=== PATIENT | female | born 1945 | race Caucasian/White ===

== ENCOUNTER 2022-12-24 00:17 | Outpatient (CLI) | payer MEDICARE, SELFPAY ==
--- NOTE | 2022-12-24 12:00 | DI.CT_ITS ---
Exam(s) CT ABDOMEN PELVIS W EXAM: CT ABDOMEN PELVIS W CLINICAL HISTORY: ABD MASS, R19.00. TECHNIQUE: Imaging Protocol: Axial computed tomography images with coronal and sagittal reformatted images were created and reviewed CONTRAST MATERIAL: Intravenous: Omnipaque-350 100cc Oral: Yes. Oral contrast also administered for bowel opacification. COMPARISON: CT CT CHEST LUNG CANCER SCREEN from 12/24/2022 FINDINGS: VISUALIZED LUNG BASES: Interstitial disease. No confluent infiltrates and no pleural effusions seen in the lung bases.. ABDOMEN: There is no ascites. Moderate size hiatal hernia noted. No bowel obstruction. No free air. LIVER: There are no focal hepatic lesions evident. No dilated intrahepatic ducts. GALLBLADDER/BILIARY: Gallbladder surgically absent. CBD diameter is slightly prominent but commensur ate with post cholecystectomy status and patient's age. PANCREAS: No evidence of pancreatic mass nor dilatation of the pancreatic duct. SPLEEN: Spleen is not enlarged. No obvious intrasplenic lesions. Splenic and portal veins are paten t. ADRENALS: There are no significant adrenal masses. KIDNEYS:There is a benign cyst in the inferior pole of the right kidney measuring 5 x 4 x 4 cm. No s olid renal masses. Calcifications medial to both kidneys noted which are probably vascular. Ureters are not dilated. No calculi in the nondistended urinary bladder.. ABDOMINAL AORTA: Calcified and atherosclerotic. Maximum diameter 2.5 cm. Common iliac arteries are also heavily calcified but not significantly dilated. LYMPH NODES:There is no retroperitoneal nor paraaortic adenopathy. ABDOMINAL WALL: Evidence previous anterior abdominal wall surgery. Atrophy of the left rectus abdomi nus muscle. GI: There is no evidence of bowel obstruction, free air, nor abscess. PELVIS: GI: Retrocecal appendix with no evidence of acute appendicitis.Extensive sigmoid diverticulosis. Dif ficult to determine if there is subtle acute diverticulitis. No free air. No free fluid. LYMPH NODES: There is no intrapelvic nor inguinal adenopathy. REPRODUCTIVE: Uterus and adnexal regions are age-appropriate. No free fluid. URINARY BLADDER: No calculi nor obvious masses evident OSSEOUS: Degenerative changes in the right hip. No fractures. Mild degenerative grade 1 anterolisth esis of L4 upon L5,. IMPRESSION: 1. There is very extensive sigmoid diverticulosis. No obvious acute diverticulitis. However, please note that a subtle case of diverticulitis can be easily missed here, in the severe involvement of th e sigmoid. 2. No evidence of appendicitis. 3. 5 cm benign cyst in the inferior aspect of the right kidney. Requires no further workup. 4. Heavily calcified abdominal aorta with maximum external diameter 2.5 cm. The common iliac arterie s are also heavily calcified and upper normal diameters. RADIATION DOSE DELIVERED: 809.3mGy.cm Total DLP DATA REPOSITORY: All CT scans at this facility are submitted to the National Radiology Data Registry (NRDR) Dose Index Registry (DIR) with the [employer] (A[employer]). RADIATION OPTIMIZATION: All CT scans at this facility use at least one of these dose optimization te chniques: automated exposure control; mA and/or kV adjustment per patient size (includes targeted exa ms where dose is matched to clinical indication); or iterative reconstruction.
--- NOTE | 2022-12-24 12:00 | DI.CTLCSR_ITS ---
Exam(s) CT CHEST LUNG CANCER SCREEN EXAM: CT CHEST LUNG CANCER SCREEN CLINICAL HISTORY: CURRENT SMOKER, LUNG CA SCREENING, F17.210. TECHNIQUE: Imaging Protocol: Low Dose Technique CONTRAST MATERIAL: None COMPARISON: No exams were available for comparison FINDINGS: CHEST: LUNGS: Advanced bilateral COPD changes. Multiple peripheral bullae noted. No confluent infiltrates there are no ominous pulmonary nodules. No pleural effusions. MEDIASTINUM: There is no obvious hilar nor mediastinal adenopathy. CARDIAC: Heart size is upper normal. There is no pericardial effusion.Caliber of the ascending thora cic aorta is within upper normal limits. Descending thoracic aorta is enlarged, measuring 3.7 cm. OTHER: Moderate size hiatal hernia noted. Previous cholecystectomy. OSSEOUS: No significant osseous lesions.. IMPRESSION: 1. Chronic COPD emphysematous changes. No ominous pulmonary nodules. 2. No obvious intrathoracic adenopathy. No pleural effusions 3. Lung RADS Cat 2 - Benign Appearance / Behavior: Nodules with a very low likelihood of becoming a c linically active cancer due to size or lack of growth Lung-RADS 1.0 CATEGORIES: Category 0 - Prior chest CT exam(s) being located for comparison. Category 1 - Annual screening in 12 months. No nodules or definitely benign nodules. Category 2 - Annual screening in 12 months. Benign appearance. Nodules with low likelihood of becomin g active cancer. Category 3 - 6-month follow-up. Probably benign. Short-term follow-up suggested. Nodules with low lik elihood of becoming active cancer. Category 4A - 3-month follow-up and CT/PET if >8 mm in size. Suspicious finding. Findings which requi re additional testing. Category 4B - Findings which require additional testing and tissue sampling. Category 4X - Category 3 or 4 nodules with additional features or imaging findings that increases the suspicion of malignancy. Modifier S- Potentially clinically significant findings (non lung cancer) RADIATION DOSE DELIVERED: 70.94mGy.cm Total DLP DATA REPOSITORY: All CT scans at this facility are submitted to the National Radiology Data Registry (NRDR) Dose Index Registry (DIR) with the [employer] (ACR). RADIATION OPTIMIZATION: All CT scans at this facility use at least one of these dose optimization te chniques: automated exposure control; mA and/or kV adjustment per patient size (includes targeted exa ms where dose is matched to clinical indication); or iterative reconstruction.
[2022-12-24] MEDS: Omnipaque 350 MG/ML 100 ML BTL IJ (14:40)
== END 2022-12-24 00:37 ==
PROVIDERS: PCP Nurse Practitioner; Visit Provider Nurse Practitioner
DX: Z12.2 Encounter for screening for malignant neoplasm of respiratory organs (principal); F17.210 Nicotine dependence, cigarettes, uncomplicated; J44.9 Chronic obstructive pulmonary disease, unspecified
CPT/HCPCS: 71271; 74177; J3490

== ENCOUNTER 2024-05-14 16:53 | Emergency (ER) | payer MEDICARE, SELFPAY ==
[2024-05-14 16:55] VITALS: BP 159/117; PULSE 95; RESP 20; TEMP 36.1; O2SAT 97
[2024-05-14 17:46] LABS: Abs Immature Grans 0.04 10^3/uL (0.0-0.06); Absolute Basophil Count 0.09 10^3/uL (0.0-0.2); Absolute Eosinophil Count 0.15 10^3/uL (0.0-0.7); Absolute Lymphocyte Count 3.99 10^3/uL (1.2-3.4); Basophils % 0.8 %; Eosinophils % 1.3 %; HCT 43.7 % (36.0-46.0); HGB 13.9 g/dL (11.2-15.7); Immature Grans % 0.3 %; Lymphocytes % 34.2 %; MCHC 31.8 % (32.0-36.0); MCV 91 fL (80-95); MPV 9.7 fL (8.0-11.0); Monocytes % 6.9 %; Neutrophils % 56.5 %; Platelet Count 409 10^3/uL (130-400); RDW 13.5 % (11.7-14.6); RDW-SD 45.7 fL; WBC 11.66 10^3/uL (4.4-10.8)
[2024-05-14 17:48] LABS: Absolute Neutrophil Count 6.59 10^3/uL (1.2-6.7)
[2024-05-14 18:05] LABS: Salicylate < 2.8 mg/dL (<2.8)
[2024-05-14 18:06] LABS: Acetaminophen < 2 ug/mL (10-30)
[2024-05-14 18:12] LABS: ALT 15 U/L (14-59); AST 18 U/L (15-37); Albumin 4.2 g/dL (3.4-5.0); Alkaline Phosphatase 130 U/L (46-116); Anion Gap 11.7 mmol/L (3-11); BUN 16 mg/dL (7-18); Bilirubin, Total 0.59 mg/dL (0.2-1.0); CO2 28.3 mmol/L (21.0-32.0); CREATININE 0.9 mg/dL (0.55-1.02); Calcium 9.9 mg/dL (8.5-10.1); Chloride 103 mmol/L (98-107); ETHANOL BLOOD < 3.0 mg/dL (<10); Estimated GFR 65.84 (mL/min/1.73m2); Glucose 121 mg/dL (74-106); Potassium 4.3 mmol/L (3.5-5.1); Sodium 143 mmol/L (136-145); TSH (W/Ref FT4) 4.35 uIU/mL (0.36-3.74); Total Protein 9.1 g/dL (6.4-8.2)
[2024-05-14 18:19] VITALS: BP 165/76; PULSE 68; RESP 18; TEMP 36.6; O2SAT 99
[2024-05-14 18:29] LABS: FREE T4 1.04 ng/dL (0.76-1.46)
[2024-05-14 19:15] LABS: Bilirubin Negative (Negative); Blood Trace-intact (Negative); Clarity Sl Cloudy (Clear); Glucose Negative (Negative); Ketones Negative (Negative); Leukocyte Esterase Negative (Negative); Nitrite Negative (Negative); pH 5.5 (5-8)
[2024-05-14 19:25] LABS: Bacteria Many HPF (Negative); C & S Indicated? No/Sq. Contamination; Crystals Negative HPF (Negative); Epithelial Cells Many HPF (Negative); Mucus Negative (Negative)
[2024-05-14 19:28] LABS: *AMPHETAMINES SCREEN URINE Negative (Negative); *BARBITURATES SCREEN URINE Negative (Negative); *BENZODIAZEPINES SCREEN URINE Negative (Negative); Cannabinoids THC Negative (Negative); Cocaine Screen,Urine Negative (Negative); METHADONE URINE SCREEN Negative (Negative); OPIATES URINE SCREEN Negative (Negative)
[2024-05-14 19:29] LABS: Tricyclic Antidepressants Negative (Negative)
--- NOTE | 2024-05-14 21:39 | ED.GENADUL_ITS ---
Discharge Plan Discharge Details Chief Complaint: PsychEval Primary Care Provider: Herminia Marte ED Provider: Brien Mendez Home Meds and New Rx's Prescriptions: No Action atorvastatin 40 mg tablet 40 mg PO DAILY clopidogrel 75 mg tablet 75 mg PO DAILY diltiazem HCl 60 mg capsule,extended release 12 hr 60 mg PO DAILY furosemide 20 mg tablet 20 mg PO DAILY pantoprazole 40 mg tablet,delayed release (DR/EC) 40 mg PO DAILY buspirone 5 mg tablet 5 mg PO BID fluticasone propion-salmeterol [Advair HFA] 115-21 mcg/actuation HFA aerosol inhaler 2 inh INHALATION BID HPI General Mode of arrival: ambulatory . Date/Time Provider Initiated Documentation: 05/14/24 16:55 . Limitations to Documentation: no limitations . Information obtained by: patient and police . History of Present Illness 78 year old F presents to the emergency department with the chief complaint of Homicidal ideations, described as severe, Patient started experiencing this unknown and it has been constant. No relieving factors improve symptom(s), Other factors that worsen symptoms (Social situation) . Patient notes no other symptoms.. Patient did receive the following treatments prior to arrival, none Related Data Home Medications Medication Instructions Recorded Confirmed atorvastatin 40 mg tablet 40 mg PO DAILY 05/14/24 05/14/24 buspirone 5 mg tablet 5 mg PO BID 05/14/24 05/14/24 clopidogrel 75 mg tablet 75 mg PO DAILY 05/14/24 05/14/24 diltiazem HCl 60 mg 60 mg PO DAILY 05/14/24 05/14/24 capsule,extended release 12 hr fluticasone propionate 115 2 inh inhalation BID 05/14/24 05/14/24 mcg-salmeterol 21 mcg/actuation HFA inhaler (Advair HFA) furosemide 20 mg tablet 20 mg PO DAILY 05/14/24 05/14/24 pantoprazole 40 mg tablet,delayed 40 mg PO DAILY 05/14/24 05/14/24 release Allergies Allergy/AdvReac Type Severity Reaction Status Date / Time Penicillins Allergy Anaphylaxis Unverified 05/14/24 17:00 sulfamethoxazole Allergy Anaphylaxis Unverified 05/14/24 17:00 [From Bactrim] trimethoprim [From Bactrim] Allergy Anaphylaxis Unverified 05/14/24 17:00 General Stated Complaint: PsychEval MICHAEL: 2 Review of Systems Constitutional Constitutional: Denies chills, Denies fever(s) and Denies weakness Cardiovascular Cardiovascular: Denies chest pain and Denies dyspnea Respiratory Respiratory: Denies dyspnea Gastrointestinal Gastrointestinal: Denies abdominal pain Neurologic Neurologic: Denies localized weakness, Reports memory loss (Mild intermittent) and Denies weakness Psychiatric Psychiatric: Reports as per HPI, Denies change in appetite, Denies auditory hallucinations, Denies hopelessness, Reports memory loss (Mild intermittent), Denies panic attacks, Denies visual hallucinations, Denies hallucinations, Reports homicidal ideation and Denies suicidal ideation Exam Const General: cooperative Orientation: alert, awake and oriented x3 Limitations: mental status not altered HENMT Head: normal to inspection, normocephalic and atraumatic Ears: hearing grossly normal bilaterally Mouth: moist mucous membranes Eyes General: appearance normal, both eyes and all related structures Pupils: PERRL Resp Effort & Inspection: normal respiratory effort, able to speak in complete sentences and no respiratory distress Auscultation: clear to auscultation bilaterally Cardio Rate: regular rate and not tachycardic Rhythm: regular rhythm Heart Sounds: S1 normal, S2 normal, no click, no gallops, no murmurs and no rubs Neuro General: patient alert, patient awake, patient oriented x3, gait normal, moves all extremities and no focal motor deficits Cognition: normal cognition Speech: speech normal Psych Appearance: disheveled Mental Status: mental status grossly normal Speech and Movement: speech and movement normal Mood: irritable mood Affect: animated Attitude: cooperative Thought Content: no hallucinations, homicidality and suicidality Course Vital Signs Vital signs: Vital Signs Temperature 36.1 C L 05/14/24 16:55 Pulse 95 H 05/14/24 16:55 Respiratory Rate 20 05/14/24 16:55 Blood Pressure 159/117 H 05/14/24 16:55 Pulse Oximetry 97 05/14/24 16:55 Temperature 36.6 C 05/14/24 18:19 Temperature Source Temporal Artery Scan 05/14/24 18:19 Pulse 68 05/14/24 18:19 Pulse Rhythm Regular 05/14/24 18:19 Pulse Strength Normal 05/14/24 18:19 Respiratory Rate 18 05/14/24 18:19 Respiratory Effort Pursed Lip 05/14/24 18:19 Respiratory Depth Normal 05/14/24 18:19 Respiratory Pattern Normal 05/14/24 18:19 Blood Pressure 165/76 H 05/14/24 18:19 Blood Pressure Mean 105 05/14/24 18:19 Blood Pressure Position Supine 05/14/24 18:19 Pulse Oximetry 99 05/14/24 18:19 Oxygen Delivery Method Room Air 05/14/24 18:19 Oxygen Flow Rate 0 05/14/24 18:19 Pain Level 0 05/14/24 18:19 Lab/Test Results Lab/Test Results: Laboratory Tests Range/Units 05/14/24 05/14/24 17:32 19:14 WBC (4.4-10.8) 10^3/uL 11.66 H RBC (3.93-5.22) 10^6/uL 4.80 Hgb (11.2-15.7) g/dL 13.9 Hct (36.0-46.0) % 43.7 MCV (80-95) fL 91 MCH (27.0-33.0) pg 29.0 MCHC (32.0-36.0) % 31.8 L RDW (11.7-14.6) % 13.5 Plt Count (130-400) 10^3/uL 409 H MPV (8.0-11.0) fL 9.7 Immature Gran % % 0.3 Neutrophils % % 56.5 Lymphocytes % % 34.2 Monocytes % % 6.9 Eosinophils % % 1.3 Basophils % % 0.8 Nucleated RBC % (0.0-0.3) % 0.0 Absolute Neutrophils (1.2-6.7) 10^3/uL 6.59 Absolute Lymphocytes (1.2-3.4) 10^3/uL 3.99 H Absolute Monocytes (0.1-0.8) 10^3/uL 0.80 Absolute Eosinophils (0.0-0.7) 10^3/uL 0.15 Absolute Basophils (0.0-0.2) 10^3/uL 0.09 Sodium (136-145) mmol/L 143 Potassium (3.5-5.1) mmol/L 4.3 Chloride (98-107) mmol/L 103 Carbon Dioxide (21.0-32.0) mmol/L 28.3 Anion Gap (3-11) mmol/L 11.7 H BUN (7-18) mg/dL 16 Creatinine (0.55-1.02) mg/dL 0.9 Est GFR (CKD-EPI 2020) (mL/min/1.73m2) 65.84 Glucose (74-106) mg/dL 121 H Calcium (8.5-10.1) mg/dL 9.9 Total Bilirubin (0.2-1.0) mg/dL 0.59 AST (15-37) U/L 18 ALT (14-59) U/L 15 Alkaline Phosphatase (46-116) U/L 130 H Total Protein (6.4-8.2) g/dL 9.1 H Albumin (3.4-5.0) g/dL 4.2 TSH (0.36-3.74) uIU/mL 4.35 H Free T4 (0.76-1.46) ng/dL 1.04 Urine Color (Yellow) Yellow Urine Clarity (Clear) Sl Cloudy Urine pH (5-8) 5.5 Ur Specific Coleman (1.005-1.025) 1.020 Urine Protein (Neg-Trace) mg/dL Negative Urine Ketones (Negative) mg/dL Negative Urine Blood (Negative) Trace-intact H Urine Nitrite (Negative) Negative Urine Bilirubin (Negative) Negative Urine Urobilinogen (Up to 0.2) mg/dL 1.0 H Ur Leukocyte Esterase (Negative) Negative Urine RBC (0-2) HPF 3-5 H Urine WBC (0-5) HPF 5-10 Ur Epithelial Cells (Negative) HPF Many Urine Crystals (Negative) HPF Negative Urine Bacteria (Negative) HPF Many Urine Mucus (Negative) Negative Ur Culture Indicated? No/Sq. Contamination Urine Glucose (Negative) mg/dL Negative Salicylates (<2.8) mg/dL < 2.8 Urine Opiates Screen (Negative) Negative Urine Methadone Screen (Negative) Negative Acetaminophen (10-30) ug/mL < 2 Ur Barbiturates Screen (Negative) Negative Ur Tricyclics Screen (Negative) Negative Ur Amphetamines Screen (Negative) Negative U Benzodiazepines Scrn (Negative) Negative Urine Cocaine Screen (Negative) Negative Ur THC Screen (Negative) Negative Ethyl Alcohol (<10) mg/dL < 3.0 Medical Decision Making Patient brought in by P for homicidal ideations and making statements such as not feeling right and that she is not right in her head. [place] police called to residents due to patient making homicidal statements towards and son. Patient also made statements of wanting to harm the police officers so that they could not jessica her when she leaves. This was observed by both the mental health screener and state police. She reports that he is on hospice but yesterday evening had told her to get out of the house. Given patient's multiple statements of wanting to harm her , not wishing to have voluntary admission, unsure if safety plan would be effective I do feel that patient needs further evaluation by psychiatrist. Will place in orders to rule out any medical causes but have low suspicion of medical source. Patient is alert and oriented x 4, not suicidal, is cooperative with staff along with assessment. Reviewed patient's labs and no emergent findings were noted. TSH is elevated at 4.3 but free T4 is within normal range. Urinalysis show no signs of infection and urine drug screen along with talk screen is all negative. Did speak with mental health worker Aida in regards to this case not having obvious clinical findings of psychosis but patient obviously is having homicidal ideations that she is very forthcoming with. Do not know if this is more due to social stressors of patient's being on hospice along with her being asked to leave the home. Patient also has son with mental illness. Given that patient did state that she did not feel right in the head and having homicidal state ments observed by multiple people including myself will complete the paperwork and have patient evaluated by a psychiatrist. Given question of acute psychosis versus social stressors causing statements will also put in for psychiatric evaluation to see if patient can be cleared by psychiatrist and alternative living arrangement could be made to keep all individual safe. Lab Data Lab results reviewed: Yes I reviewed the patient's lab results. Quality:SDOH Health Related Social Needs: No Data to Display PFSH All Active Problems (Updated 05/14/24 @ 23:22 by Brien Mendez NP) GERD (gastroesophageal reflux disease) (Chronic) Anxiety (Chronic) Depression (Chronic) Social History Smoking/Tobacco Use Status: Current every day Tobacco Type: cigarettes Smoking packs per day: 0.5 Smoking cigarettes per day: 10.0 Years smoked: 60 Smoking pack-years: 30.00 Tobacco: How many years used: 60 Smoking risk assessment performed?: Yes Alcohol Intake: current Alcohol Intake frequency: 0-2 drinks per day Alcohol type: beer Drug use: Never Substance use type: former substance user Details: smoke pot long time ago more than 2-3 yrs tried crank I ate it just once. never again Housing: apartment Do you feel safe at home: Yes Do you feel safe in your relationship?: Yes Sign Out Sign Out Data: Sign Out Comment: Patient signed out pending psychiatric evaluation for homicidal ideations Last updated by Brien Mendez NP at 05/14/24 23:31 PAWSS Have you Been Recently Intoxicated or Drunk Within the Last 30 days?: Yes Have you Ever Experienced Previous Episodes of Alcohol Withdrawal?: Yes Have you ever Experienced Withdrawal Seizures?: No Have you ever Experienced Delirium Tremens(DT)s?: No Have you ever undergone Alcohol Rehabilitation Treatment (i.e, inpt ot outpatient treatment programs)?: No Have you ever Experienced Blackouts?: Yes Have you ever Combined Alcohol with other Downers within the last 90 days?: No Have you ever Combined Alcohol with any other Substance of Abuse during the last 90 days?: No Evidence of Increased Autonomic Activity (i.e. HR>120, tremor, sweating, agitation, nausea)?: No Result: 3
[2024-05-15] MEDS: Nicotine 2 MG LOZG SUC ×2 (02:53→17:24)
--- NOTE | 2024-05-15 07:41 | W.EDPROG ---
Date of service: 05/15/24 Time of Service: 17:02 Medical Decision Making 78-year-old female is currently on involuntary hold with PE in place. She has been evaluated by telemetry psychiatry, by report and recommendation regarding their evaluation has not yet been provided. A second certification has not yet been performed either. No issues during the day today. Quality:[facility] Health Related Social Needs: No Data to Display Sign Out Sign Out Data: Sign Out Comment: Patient signed out pending psychiatric evaluation for homicidal ideations Last updated by Brien Mendez NP at 05/14/24 23:31 Sign Out Comment: Patient here in the ED pending second certification for involuntary hold. No issues overnight at all. Daily medications have been ordered. Telepsych consult previously ordered is pending this morning. Last updated by Dg Harding MD at 05/15/24 07:16 Sign Out Comment: Involuntary hold pending 2nd cert Was eval'd by tele psych, haven't received report regarding this evaluation. No issues during shift Last updated by Neelam Aden MD at 05/15/24 16:57 Discharge Plan Discharge Details Chief Complaint: PsychEval Primary Care Provider: Herminia Marte ED Provider: Neelam Aden Home Meds and New Rx's Prescriptions: No Action atorvastatin 40 mg tablet 40 mg PO DAILY clopidogrel 75 mg tablet 75 mg PO DAILY diltiazem HCl 60 mg capsule,extended release 12 hr 60 mg PO DAILY furosemide 20 mg tablet 20 mg PO DAILY pantoprazole 40 mg tablet,delayed release (DR/EC) 40 mg PO DAILY buspirone 5 mg tablet 5 mg PO BID Patient Comments: per MD Q 8 hours as needed not BID as stated. fluticasone propion-salmeterol [Advair HFA] 115-21 mcg/actuation HFA aerosol inhaler 2 inh INHALATION BID
[2024-05-15 08:10] VITALS: BP 123/65; PULSE 72; RESP 16; TEMP 36.5; O2SAT 94
[2024-05-15] MEDS: Clopidogrel 75 MG TAB PO (08:14)
[2024-05-15] MEDS: Furosemide 20 MG TAB PO (08:14)
[2024-05-15] MEDS: busPIRone 5 MG TAB PO (08:14)
[2024-05-15] MEDS: dilTIAZem 30 MG TAB PO ×2 (12:23→16:47)
--- NOTE | 2024-05-15 17:57 | ED.PROG_ITS ---
Date of service: 05/15/24 Time of Service: 17:57 Medical Decision Making I received signout on this 78-year-old female currently on an EE pending psychiatry consultation. Patient was reportedly feeling homicidal towards her . No active behavioral issues last shift. 6 pm I spoke to Marine from [facility] who reported that the patient had failed her second certification. I have a copy of her second certification and the patient is not in need of treatment. Will attempt to reach out to law enforcement as I did not want patient to go home and harm her . 6:17 pm I spoke Bassem Chen from [facility]. He called the patient's at home who did not want to get the police involved. I advised bassem Chen that I was going to discharge the patient. He felt comfortable with this plan. 7:07 PM I met with the patient. She was calm and cooperative. She reported that she did not feel homicidal nor suicidal. She said that her overnight in the emergency department had helped her to reflect. She reported that she was not planning on hurting her . She reported that she had called him and said that she loved him. [facility] will call to check in on the patient. They have written me a safety plan. I advised that she should return to the emergency department if she did not feel safe or did not feel that her felt safe. She understood her return indications and was discharged with empiric trial of expectant outpatient management. Quality:SDOH Health Related Social Needs: No Data to Display Sign Out Sign Out Data: Sign Out Comment: Patient signed out pending psychiatric evaluation for homicidal ideations Last updated by Brien Mendez NP at 05/14/24 23:31 Sign Out Comment: Patient here in the ED pending second certification for involuntary hold. No issues overnight at all. Daily medications have been ordered. Telepsych consult previously ordered is pending this morning. Last updated by Dg Harding MD at 05/15/24 07:16 Sign Out Comment: Involuntary hold pending 2nd cert Was eval'd by tele psych, haven't received report regarding this evaluation. No issues during shift Last updated by Neelam Aden MD at 05/15/24 16:57 Discharge Plan Disposition Patient Disposition: Home Discharge Details Clinical Impression: History of homicidal ideation Primary Care Provider: Herminia Marte ED Provider: Augie [facility] [place] Meds and New Rx's Prescriptions: Continued atorvastatin 40 mg tablet 40 mg PO DAILY clopidogrel 75 mg tablet 75 mg PO DAILY diltiazem HCl 60 mg capsule,extended release 12 hr 60 mg PO DAILY furosemide 20 mg tablet 20 mg PO DAILY pantoprazole 40 mg tablet,delayed release (DR/EC) 40 mg PO DAILY buspirone 5 mg tablet 5 mg PO BID Patient Comments: per MD Q 8 hours as needed not BID as stated. fluticasone propion-salmeterol [Advair HFA] 115-21 mcg/actuation HFA aerosol inhaler 2 inh INHALATION BID Discharge Instructions Additional Instructions: You are seen in the emergency department for your thoughts of hurting her . You were screened by the mental health team and it was determined that it is best for you to be sent home to the emergency department. If you do not feel safe or if you do not feel that your is safe please return to the emergency department. Otherwise please follow-up next week with your primary care provider.
--- NOTE | 2024-05-15 18:19 | CMSP_ITS ---
Date of service: 05/15/24 Time of Service: 18:19 Care Management Safety Plan Status Status: Involuntary Reason for Wait Reason for Wait: Assessment/Screening Safety Plan Safety Plan: INVOLUNTARY FOR INPATIENT PSYCHIATRIC STABILIZATION.? Patient is appropriate in all interactions since arriving at [facility]; Pt has demonstrated appropriate coping and communication skills, has articulated his or her needs and concerns and is fully engaged during staff interactions. Per report, Michelle had her second certification this afternoon and it was not uph eld; she created a safety plan with [facility] to follow in the community. [facility] communicating with service providers in her area, trying to obtain additional support. Michelle will likely return home this afternoon/evening. Safety plan has been established with patient, and care team, to adhere to patient goals, identify restrictions based on behavioral status, address nutrition, and determine allowed personal belongings, tools for hygiene and personal care. Determine level of activity including ambulation, level of supervision, visitors, and determine privileges based on behaviors and level of engagement by pt. SAFETY PLAN: 1. Will remain on suicide precautions, in paper clothes 2. Will remain in Zone B under direct supervision of one-on-one staff at all times provided by [employer]; LAM, MANAGER CASINO steel rule inspector. 3. May have paper cups, plates, finger foods as well as a cardboard spoon with which to eat meals. 4. Follow [facility] Management of the Admitted Behavioral Health Patient policy. 5. Shower available in Zone B without restriction. 6. Personal belongings-soft items permitted at RN discretion. 7. Visitors- at RN discretion 8. Activities: soft cart items approved per RN discretion. 9.? Bathroom available in Zone B without restriction. 10. Phone: incoming/outgoing calls limited to [facility] cordless phone at RN discretion. Due to INVOLUNTARY status, patient is being held at [facility] by the Department of Mental Health ([facility]) until 2nd certification by [facility] Psychiatrist can be performed (within 24 hours). Staff will provide de-escalation support (CPI) as needed. If patient wishes to leave [facility], staff will contact [facility] Crisis Screener ([phone]) and Clinical Research Assistant ([phone]) as soon as possible. In the event of elopement, notify [facility] Police ([phone]). Patient is currently involuntarily at [facility]. [facility] Frontline Submarine Cable Equipment Technician will continue seeking placement. Please contact the Clinical Research Assistant for any needed changes to Safety Plan. Safety plan has been provided to interdepartmental care team. Patient will be transported by outboard system operator at time of discharge.
--- NOTE | 2024-05-15 18:19 | PDOC.CMSAFE ---
Date of service: 05/15/24 Time of Service: 18:19 Care Management Safety Plan Status Status: Involuntary Reason for Wait Reason for Wait: Assessment/Screening Safety Plan Safety Plan: INVOLUNTARY FOR INPATIENT PSYCHIATRIC STABILIZATION.? Patient is appropriate in all interactions since arriving at [facility]; Pt has demonstrated appropriate coping and communication skills, has articulated his or her needs and concerns and is fully engaged during staff interactions. Per report, Michelle had her second certification this afternoon and it was not upheld; she created a safety plan with [facility] to follow in the community. [facility] communicating with service providers in her area, trying to obtain additional support. Michelle will likely return home this afternoon/evening. Safety plan has been established with patient, and care team, to adhere to patient goals, identify restrictions based on behavioral status, address nutrition, and determine allowed personal belongings, tools for hygiene and personal care. Determine level of activity including ambulation, level of supervision, visitors, and determine privileges based on behaviors and level of engagement by pt. SAFETY PLAN: 1. Will remain on suicide precautions, in paper clothes 2. Will remain in Zone B under direct supervision of one-on-one staff at all times provided by [employer]; LAM, BIOFUELS ENGINEERING MANAGER senior principal architect. 3. May have paper cups, plates, finger foods as well as a cardboard spoon with which to eat meals. 4. Follow [facility] Management of the Admitted Behavioral Health Patient policy. 5. Shower available in Zone B without restriction. 6. Personal belongings-soft items permitted at RN discretion. 7. Visitors- at RN discretion 8. Activities: soft cart items approved per RN discretion. 9.? Bathroom available in Zone B without restriction. 10. Phone: incoming/outgoing calls limited to [facility] cordless phone at RN discretion. Due to INVOLUNTARY status, patient is being held at [facility] by the Department of Mental Health ([facility]) until 2nd certification by [facility] Psychiatrist can be performed (within 24 hours). Staff will provide de-escalation support (CPI) as needed. If patient wishes to leave [facility], staff will contact [facility] Crisis Screener ([phone]) and Privacy Specialist ([phone]) as soon as possible. In the event of elopement, notify [facility] Police ([phone]). Patient is currently involuntarily at [facility]. [facility] Frontline Compliance Professional will continue seeking placement. Please contact the Privacy Specialist for any needed changes to Safety Plan. Safety plan has been provided to interdepartmental care team. Patient will be transported by store keeper at time of discharge.
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
== END 2024-05-15 19:11 | disposition home or self-care (01) ==
PROVIDERS: Nurse Practitioner Family; Emergency Provider Emergency Medicine; PCP Nurse Practitioner
DX: R45.850 Homicidal ideations (principal); F32.9 Major depressive disorder, single episode, unspecified; F41.9 Anxiety disorder, unspecified; K21.9 Gastro-esophageal reflux disease without esophagitis; Z79.899 Other long term (current) drug therapy
CPT/HCPCS: 00123; 80053; 80307; 99285; 80320; 80329; 81003; 81015; 84439; 84443; 85025